=== PATIENT | female | born 2000 | race Caucasian/White ===

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

== ENCOUNTER → 2018-05-10 | Outpatient (REF) | payer OTHER ==
[~2018-05-10] MED LIST: ACET500T15 PO; ARIP2TAB PO; FLUTISP; IBUP-1022 PO; IBUPOTC PO; PARO12.5 PO; PAXI20TA29 PO; TRAZO50TA PO; VENTAER
== END ==
LOC: CANPREREF → M SFHCPLAZ 08:42
PROVIDERS: ATTEND Physician Assistant
DX: Z53.9 Procedure and treatment not carried out, unspecified reason (principal); F32.9 Major depressive disorder, single episode, unspecified

== ENCOUNTER → 2018-05-10 | Outpatient (CLI) | payer OTHER ==
[2018-05-10 13:32] LABS: ALBUMIN 3.9 GM/DL (3.2-5.2); ALT/SGPT 21 U/L (12-78); BILIRUBIN,TOTAL 0.2 MG/DL (0.2-1.0); BLOOD UREA NITROGEN 11 MG/DL (7-18); CARBON DIOXIDE LEVEL 25 MEQ/L (21-32); CHLORIDE LEVEL 104 MEQ/L (98-107); CREATININE FOR GFR 0.63 MG/DL (0.55-1.30); FREE T4 0.99 NG/DL (0.78-1.33); GLUCOSE, FASTING 93 MG/DL (70-100); POTASSIUM SERUM 4.5 MEQ/L (3.5-5.1); SODIUM LEVEL 136 MEQ/L (136-145); TOTAL PROTEIN 7.4 GM/DL (6.4-8.2)
== END ==
LOC: M WUC 08:43
PROVIDERS: ATTEND Physician Assistant
DX: F32.9 Major depressive disorder, single episode, unspecified (principal)

== ENCOUNTER 2018-09-14 18:49 | Emergency (ER) | payer OTHER ==
[~2018-09-14] VITALS: Ht 157.5 cm; Wt 86.4 kg
[~2018-09-14 18:49] MED LIST changes: +ARIP1TAB4 PO; -ARIP2TAB PO; +TRAZ1TAB10 PO; -TRAZO50TA PO
[2018-09-14] MEDS ORDERED: LEVOTAB18 (18:54)
[2018-09-14] MEDS ORDERED: KETOROLAC 30 MG/ML VIAL (J1885) IV ONE (19:45)
[2018-09-14] MEDS ORDERED: GI COCKTAIL 50ML BTL(HYOSCYAMINE/MAALOX/LIDOCAINE VISCOUS)(1:3:1) PO ONE (19:45)
[2018-09-14] MEDS ORDERED: NS 1,000 ML IV ONE (19:45)
[2018-09-14 19:53] LABS: HEMATOCRIT 44.2 % (36.0-47.0); HEMOGLOBIN 14.1 g/dl (12.0-15.5); MEAN CORPUSCULAR HEMOGLOBIN 26.5 pg (27.0-33.0); MEAN CORPUSCULAR HGB CONC 31.9 g/dl (32.0-36.5); MEAN CORPUSCULAR VOLUME 82.9 fl (80.0-96.0); PLATELET COUNT, AUTOMATED 369 10^3/uL (150-450); RED BLOOD COUNT 5.33 10^6/uL (4.00-5.40)
[2018-09-14 20:24] LABS: ATYPICAL LYMPH 1 % (0-5); BASOPHILS 1 % (0-4); EOSINOPHILS 1 % (0-5); LYMPHOCYTES 38 % (16-52); MONOCYTES 4 % (0-8); NEUTROPHILS 55 % (35-75)
[2018-09-14 20:25] LABS: PLATELET ESTIMATE NORMAL (NORMAL)
--- NOTE | 2018-09-14 20:35 | REPVR ---
EXAM: US Abdomen Limited, Right Upper Quadrant EXAM DATE/TIME: 09/14/2018 7:59 PM CLINICAL HISTORY: 17 years old, female; Abdominal pain; Epigastric; Additional info: Ruq pain while eating TECHNIQUE: Imaging protocol: Real-time ultrasound of the abdomen with image documentation. Examination was focused on the right upper quadrant. COMPARISON: No relevant prior studies available. FINDINGS: Liver: Unremarkable. Gallbladder: Partially contracted. No gallstones. No gallbladder wall thickening or pericholecystic fluid. Negative sonographic Frausto's sign, as per the performing director. Common bile duct: No stones. No ductal dilatation. Pancreas: Suboptimally visualized. Right kidney: No mass. No definite stones. No hydronephrosis. IMPRESSION: No acute sonographic findings. Electronically signed by: Jj Lewis On 09/14/2018 20:34:53 PM
[2018-09-14] MEDS ORDERED: ZANT150T40 PO (20:44)
[2018-09-14 21:05] LABS: ALBUMIN 3.8 GM/DL (3.2-5.2); ALT/SGPT 26 U/L (12-78); BILIRUBIN,DIRECT < 0.1 MG/DL (0.0-0.2); BILIRUBIN,TOTAL 0.2 MG/DL (0.2-1.0); BLOOD UREA NITROGEN 12 MG/DL (7-18); CALCIUM LEVEL 8.6 MG/DL (8.5-10.1); CARBON DIOXIDE LEVEL 27 MEQ/L (21-32); CHLORIDE LEVEL 102 MEQ/L (98-107); GLUCOSE, FASTING 96 MG/DL (70-100); LIPASE 87 U/L (73-393); SODIUM LEVEL 136 MEQ/L (136-145); TOTAL PROTEIN 7.8 GM/DL (6.4-8.2)
[2018-09-14 21:10] VITALS: BP 141/72
--- NOTE | 2018-09-15 07:06 | ECGEPIP ---
[facility] - ED Test Date: 2018-09-14 Pat Name: RADHA RIVERA Department: Room: - Gender: Female [employer]: LY : 2000 Requested By: NICOLE Snyder PA-C Order Number: [id number] Reading MD: Lauren Moser Measurements Intervals [place] Rate: 83 P: 17 KS: 137 QRS: 83 QRSD: 85 T: 41 QT: 344 QTc: 406 Interpretive Statements SINUS RHYTHM SIMILAR 07/11/17 Electronically Signed on 09-15-2018 7:06:30 EDT by Lauren Moser
--- NOTE | 2018-09-16 08:37 | REP ---
Clinical: Acute chest pain . Comparison: None . Technique: PA and lateral. Findings: The mediastinum and cardiac silhouette are normal. The lung pearson are clear and without acute consolidation, effusion, or pneumothorax. The skeletal structures are intact and normal. Impression: 1. No acute cardiopulmonary process. Electronically Signed by Vasu Kern MD 09/14/2018 09:16 P
== END 2018-09-14 21:24 | disposition home or self-care (01) ==
LOC: M ED 18:49
DX: K21.9 Gastro-esophageal reflux disease without esophagitis (principal); R10.13 Epigastric pain; J45.909 Unspecified asthma, uncomplicated; Z79.3 Long term (current) use of hormonal contraceptives
CPT/HCPCS: 36415; 71046; 76705; 80048; 80076; 83690; 85025; 85379; 93005; 96374; 99284; J1885

== ENCOUNTER 2018-12-07 11:33 | Emergency (ER) | payer OTHER ==
[~2018-12-07] VITALS: Ht 157.5 cm; Wt 83.5 kg
[~2018-12-07 11:33] MED LIST changes: +LEVOTAB18; +ZANT150T40 PO
[2018-12-07] MEDS ORDERED: APAP325T4 PO (12:50)
[2018-12-07] MEDS ORDERED: IBUP80TA PO (12:50)
[2018-12-07 12:54] VITALS: BP 128/85
== END 2018-12-07 13:01 | disposition home or self-care (01) ==
LOC: M ED 11:33
DX: S20.212A Contusion of left front wall of thorax, initial encounter (principal); V47.6XXA Car passenger injured in collision with fixed or stationary object in traffic accident, initial encounter; Y92.410 Unspecified street and highway as the place of occurrence of the external cause

== ENCOUNTER 2020-02-11 11:52 | Emergency (ER) | payer OTHER ==
[~2020-02-11] VITALS: Ht 157.5 cm; Wt 92.5 kg
[~2020-02-11 11:52] MED LIST changes: +APAP325T4 PO; +IBUP80TA PO; -PARO12.5 PO; +PARO12.510 PO
[2020-02-11] MEDS ORDERED: BOOSTRIX/ADACEL VACCINE (DIPHTH/PERTUSS/ACELL/TETANUS) 0.5ML SYR IM ONE (12:45)
[2020-02-11] MEDS ORDERED: NEOSPORIN TOP OINT 15GM TOP ONE (12:45)
--- NOTE | 2020-02-11 13:29 | REP ---
INDICATION: trauma; stepped on nail COMPARISON: None. TECHNIQUE: Four views left foot obtained. FINDINGS: There is no evidence of acute fracture, dislocation, or intrinsic bone disease.No radiopaque foreign body is seen in the soft tissues. IMPRESSION: No fracture or dislocation. No radiopaque foreign body is seen in the soft tissues. <Electronically signed by Chepe Landry > 02/11/20 [id number]
[2020-02-11 13:33] VITALS: BP 141/77
== END 2020-02-11 13:35 | disposition home or self-care (01) ==
LOC: M ED 11:52
DX: S91.332A Puncture wound without foreign body, left foot, initial encounter (principal); W45.0XXA Nail entering through skin, initial encounter; Y92.098 Other place in other non-institutional residence as the place of occurrence of the external cause; Y93.89 Activity, other specified; Y99.8 Other external cause status; Z72.0 Tobacco use

== ENCOUNTER → 2020-03-22 | Outpatient (CLI) | payer OTHER ==
--- NOTE | 2020-03-22 14:39 | REPPI ---
INDICATION: NECK PAIN. COMPARISON: None. TECHNIQUE: Seven views. FINDINGS: Lateral views done in flexion, extension, and neutral position demonstrate normal alignment. Vertebral body heights are preserved. No subluxation or instability is seen. . Prevertebral soft tissues are unremarkable. Oblique images demonstrate intact neural foramina bilaterally at each cervical level and normally aligned facets. AP and open-mouth odontoid views are unremarkable. IMPRESSION: Unremarkable cervical spine series. <Electronically signed by Delio Patel > 03/22/20 [id number]
--- NOTE | 2020-03-22 14:41 | REPPI ---
INDICATION: BACK PAIN. COMPARISON: None. TECHNIQUE: Three views. FINDINGS: Thoracic vertebral body heights are preserved. Alignment is normal. Disc spaces are maintained. Pedicles and posterior elements are intact. No paravertebral soft tissue swelling or mass is seen. Adjacent structures are unremarkable. Swimmer's lateral view shows no additional finding. IMPRESSION: Negative radiographs of the thoracic spine. <Electronically signed by Delio Patel > 03/22/20 [id number]
== END ==
LOC: M PLAIMG 14:03
PROVIDERS: ATTEND Nurse Practitioner Family
DX: M54.6 Pain in thoracic spine (principal); M54.2 Cervicalgia

== ENCOUNTER 2020-04-27 17:11 | Emergency (ER) | payer OTHER ==
[~2020-04-27] VITALS: Ht 149.9 cm; Wt 99.2 kg
[2020-04-27] MEDS ORDERED: NS 1,000 ML IV ONE (19:30)
[2020-04-27] MEDS ORDERED: ACETAMINOPHEN 325 MG TAB PO ONE (19:30)
[2020-04-27 19:37] LABS: BASO % 0.3 % (0.0-1.0); EOS # 0.1 10^3/uL (0.0-0.5); EOS % 0.5 % (0.0-3.0); HEMATOCRIT 42.9 % (36.0-47.0); HEMOGLOBIN 13.5 g/dl (12.0-15.5); LYMPH # 4.1 10^3/uL (1.5-5.0); LYMPH % 26.2 % (24.0-44.0); MEAN CORPUSCULAR HEMOGLOBIN 25.6 pg (27.0-33.0); MEAN CORPUSCULAR HGB CONC 31.5 g/dl (32.0-36.5); MEAN CORPUSCULAR VOLUME 81.3 fl (80.0-96.0); MONO # 1.4 10^3/uL (0.0-0.8); NEUTROPHILS # 9.8 10^3/uL (1.5-8.5); NEUTROPHILS % 63.4 % (36.0-66.0); PLATELET COUNT, AUTOMATED 355 10^3/uL (150-450); RED BLOOD COUNT 5.28 10^6/uL (4.00-5.40); WHITE BLOOD COUNT 15.5 10^3/uL (4.0-10.0)
[2020-04-27 19:55] LABS: PARTIAL THROMBOPLASTIN TIME 30.9 SECONDS (24.2-38.5); PROTHROMBIN TIME 13.4 SECONDS (12.5-14.3)
[2020-04-27 19:57] LABS: ALT/SGPT 24 U/L (12-78); BILIRUBIN,DIRECT < 0.1 MG/DL (0.0-0.2); FREE T4 0.93 NG/DL (0.76-1.46); LIPASE 98 U/L (73-393); TOTAL PROTEIN 7.9 GM/DL (6.4-8.2)
[2020-04-27 19:58] LABS: D-DIMER QUANT 292.51 ng/ml (<500)
[2020-04-27 20:04] LABS: BILIRUBIN,TOTAL < 0.1 MG/DL (0.2-1.0)
--- NOTE | 2020-04-27 20:18 | ECGEPIP ---
[facility] - ED Test Date: 2020-04-27 Pat Name: RADHA RIVERA Department: Room: - Gender: Female Clinic Scheduler: : 2000 Requested By: Ayan Snyder Order Number: [id number] Reading MD: Lauren Moser Measurements Intervals [place] Rate: 114 P: 58 SD: 141 QRS: 92 QRSD: 79 T: 15 QT: 299 QTc: 413 Interpretive Statements SINUS TACHYCARDIA BORDERLINE RIGHT AXIS DEVIATION ABNORMAL RHYTHM ECG INCREASED RATE 09/14/18 Electronically Signed on 04-27-2020 20:17:39 EST by Lauren Moser
--- NOTE | 2020-04-27 20:24 | REPVR ---
PROCEDURE INFORMATION: Exam: XR Chest, 2 Views Exam date and time: 04/27/2020 8:07 PM Age: 19 years old Clinical indication: Short of breath, chest pain TECHNIQUE: Imaging protocol: XR of the chest Views: 2 views. COMPARISON: CR Chest, 2 view PA, Lat 09/14/2018 8:06 PM FINDINGS: Lungs: Unremarkable. No consolidation. No pulmonary edema. Pleural spaces: Unremarkable. No pleural effusion. No pneumothorax. Heart/Mediastinum: Unremarkable. No cardiomegaly. Bones/joints: Unremarkable. IMPRESSION: No acute findings. Electronically signed by: Prasanth Hernandez On 04/27/2020 20:24:31 PM
[2020-04-27 20:27] LABS: CPK CREATINE PHOSPHOKINASE 115 U/L (26-192); MB/CK RELATIVE INDEX 0.87 (< OR =4); TROPONIN I < 0.02 NG/ML (< 0.10)
[2020-04-27 21:05] VITALS: BP 134/87
== END 2020-04-27 21:28 | disposition home or self-care (01) ==
LOC: M ED 17:11
DX: D72.829 Elevated white blood cell count, unspecified (principal); R07.89 Other chest pain; R00.0 Tachycardia, unspecified; R94.31 Abnormal electrocardiogram [ECG] [EKG]; F41.9 Anxiety disorder, unspecified; F32.9 Major depressive disorder, single episode, unspecified; F20.9 Schizophrenia, unspecified; J45.909 Unspecified asthma, uncomplicated; R51.9 Headache, unspecified

== ENCOUNTER 2020-08-12 20:48 | Emergency (ER) | payer OTHER ==
[~2020-08-12] VITALS: Ht 154.9 cm; Wt 95.7 kg
[2020-08-12 20:49] VITALS: BP 131/83
== END 2020-08-12 22:22 | disposition left against medical advice (07) ==
LOC: M ED 20:48
DX: Z53.21 Procedure and treatment not carried out due to patient leaving prior to being seen by health care provider (principal)

== ENCOUNTER → 2021-05-24 | Outpatient (CLI) | payer OTHER ==
[~2021-05-24] MED LIST changes: +METH2.5T48 PO; -PARO12.510 PO; +PARO12.56 PO
== END ==
LOC: M WHC 10:40
PROVIDERS: ATTEND Advanced Practice Midwife
DX: Z34.82 Encounter for supervision of other normal pregnancy, second trimester (principal)

== ENCOUNTER → 2021-07-01 | Outpatient (CLI) | payer OTHER ==
[2021-07-01 13:48] LABS: BASO % 0.2 % (0.0-1.0); EOS # 0.1 10^3/uL (0.0-0.5); EOS % 0.8 % (0.0-3.0); HEMATOCRIT 37.4 % (36.0-47.0); HEMOGLOBIN 12.4 g/dl (12.0-15.5); LYMPH # 2.7 10^3/uL (1.5-5.0); LYMPH % 19.2 % (24.0-44.0); MEAN CORPUSCULAR HEMOGLOBIN 27.4 pg (27.0-33.0); MEAN CORPUSCULAR HGB CONC 33.2 g/dl (32.0-36.5); MEAN CORPUSCULAR VOLUME 82.7 fl (80.0-96.0); MONO % 7.3 % (2.0-8.0); NEUTROPHILS # 9.9 10^3/uL (1.5-8.5); NEUTROPHILS % 71.3 % (36.0-66.0); PLATELET COUNT, AUTOMATED 256 10^3/uL (150-450); RED BLOOD COUNT 4.52 10^6/uL (4.00-5.40); WHITE BLOOD COUNT 13.9 10^3/uL (4.0-10.0)
[2021-07-01 15:07] LABS: HEPATITIS C VIRUS ABY INDEX 0.1 INDEX (<0.8); HIV 1&2 SCREEN CENTAUR NEGATIVE (NEGATIVE)
[2021-07-01 15:08] LABS: GC DNA AMPLIFICATION NEGATIVE (NEGATIVE)
== END ==
LOC: M PLALAB 08:41
PROVIDERS: ATTEND Advanced Practice Midwife
DX: Z34.82 Encounter for supervision of other normal pregnancy, second trimester (principal); Z3A.00 Weeks of gestation of pregnancy not specified

== ENCOUNTER → 2021-07-07 | Outpatient (CLI) | payer OTHER | LOC: M WHC 13:26 | PROVIDERS: ATTEND Advanced Practice Midwife | DX: Z34.82 Encounter for supervision of other normal pregnancy, second trimester (principal) ==

== ENCOUNTER → 2021-07-28 | Outpatient (REF) | payer OTHER | LOC: M PLALAB 09:02 | PROVIDERS: ATTEND Advanced Practice Midwife | DX: Z34.82 Encounter for supervision of other normal pregnancy, second trimester (principal) ==

== ENCOUNTER → 2021-08-04 | Outpatient (CLI) | payer OTHER ==
[2021-08-04 13:30] LABS: HEMATOCRIT 34.6 % (36.0-47.0); HEMOGLOBIN 11.3 g/dl (12.0-15.5); MEAN CORPUSCULAR HEMOGLOBIN 27.6 pg (27.0-33.0); MEAN CORPUSCULAR HGB CONC 32.7 g/dl (32.0-36.5); MEAN CORPUSCULAR VOLUME 84.4 fl (80.0-96.0); PLATELET COUNT, AUTOMATED 284 10^3/uL (150-450); WHITE BLOOD COUNT 12.2 10^3/uL (4.0-10.0)
== END ==
LOC: M PLALAB 09:55
PROVIDERS: ATTEND Advanced Practice Midwife
DX: Z34.82 Encounter for supervision of other normal pregnancy, second trimester (principal)

== ENCOUNTER → 2021-08-22 | Outpatient (CLI) | payer OTHER | LOC: M WHC 13:30 | PROVIDERS: ATTEND Advanced Practice Midwife | DX: Z34.82 Encounter for supervision of other normal pregnancy, second trimester (principal) ==

== ENCOUNTER 2021-09-03 01:23 | Outpatient (CLI) | payer OTHER ==
[~2021-09-03] VITALS: Ht 157.5 cm; Wt 99.9 kg
[2021-09-03 01:41] VITALS: BP 117/61
[2021-09-03 03:01] VITALS: BP 119/61
[2021-09-03 03:06] LABS: APPEARANCE, URINE TURBID (CLEAR); BACTERIA, URINE AUTO 1+ (NEGATIVE); BILIRUBIN, URINE AUTO NEGATIVE (NEGATIVE); BLOOD, URINE BLOOD 1+ (NEGATIVE); CALCIUM OXALATE CRYSTALS MODERATE; COLOR, URINE AMBER (YELLOW); GLUCOSE, URINE (UA) AUTO NEGATIVE (NEGATIVE); KETONE, URINE AUTO NEGATIVE (NEGATIVE); LEUKOCYTE ESTERASE, URINE AUTO 3+ (NEGATIVE); MUCUS, URINE SMALL (NEGATIVE); NITRITE, URINE AUTO NEGATIVE (NEGATIVE); PROTEIN, URINE AUTO 1+ mg/dL (NEGATIVE); RBC, URINE AUTO 71 /HPF (0-3); SQUAMOUS EPITHELIAL CELL UR AU 37 /HPF (0-6); UROBILINOGEN, URINE AUTO 0.2 mg/dL (0.0-2.0); WBC, URINE AUTO 66 /HPF (0-3)
[2021-09-03 03:07] LABS: BASO % 0.2 % (0.0-1.0); EOS % 0.1 % (0.0-3.0); HEMATOCRIT 33.2 % (36.0-47.0); HEMOGLOBIN 10.8 g/dl (12.0-15.5); LYMPH # 2.9 10^3/uL (1.5-5.0); LYMPH % 21.5 % (24.0-44.0); MEAN CORPUSCULAR HGB CONC 32.5 g/dl (32.0-36.5); MONO # 1.2 10^3/uL (0.0-0.8); MONO % 8.9 % (2.0-8.0); NEUTROPHILS # 9.3 10^3/uL (1.5-8.5); NEUTROPHILS % 67.9 % (36.0-66.0); PLATELET COUNT, AUTOMATED 264 10^3/uL (150-450); WHITE BLOOD COUNT 13.6 10^3/uL (4.0-10.0)
[2021-09-03 06:37] VITALS: BP 134/63
== END 2021-09-03 06:54 | disposition home or self-care (01) ==
LOC: M LDO 01:23
PROVIDERS: ATTEND Specialist
DX: O26.893 Other specified pregnancy related conditions, third trimester (principal); R10.30 Lower abdominal pain, unspecified; Z3A.30 30 weeks gestation of pregnancy

== ENCOUNTER 2021-10-02 11:58 | Outpatient (CLI) | payer OTHER ==
[~2021-10-02] VITALS: Ht 157.5 cm; Wt 102.2 kg
[2021-10-02 12:11] VITALS: BP 117/66
[2021-10-02] MEDS ORDERED: PRENTAB9 PO (12:16)
[2021-10-02] MEDS ORDERED: HOME MED LIST COMPLETE! XX SCH (12:20)
[2021-10-02 12:48] LABS: APPEARANCE, URINE CLOUDY (CLEAR); BACTERIA, URINE AUTO 1+ (NEGATIVE); BILIRUBIN, URINE AUTO NEGATIVE (NEGATIVE); BLOOD, URINE BLOOD NEGATIVE (NEGATIVE); COLOR, URINE YELLOW (YELLOW); GLUCOSE, URINE (UA) AUTO NEGATIVE (NEGATIVE); KETONE, URINE AUTO TRACE mg/dL (NEGATIVE); LEUKOCYTE ESTERASE, URINE AUTO 3+ (NEGATIVE); MUCUS, URINE SMALL (NEGATIVE); NITRITE, URINE AUTO NEGATIVE (NEGATIVE); PROTEIN, URINE AUTO 1+ mg/dL (NEGATIVE); RBC, URINE AUTO 3 /HPF (0-3); SPECIFIC GRAVITY URINE AUTO 1.021 (1.002-1.035); SQUAMOUS EPITHELIAL CELL UR AU 10 /HPF (0-6); TRANSITIONAL EPITHELIAL AUTO <1 /HPF; UROBILINOGEN, URINE AUTO 0.2 mg/dL (0.0-2.0); WBC, URINE AUTO 23 /HPF (0-3)
[2021-10-02 14:04] VITALS: BP 138/74
== END 2021-10-02 14:13 | disposition home or self-care (01) ==
LOC: M LDO 11:58
PROVIDERS: ATTEND Obstetrics & Gynecology
DX: O36.8230 Fetal anemia and thrombocytopenia, third trimester, not applicable or unspecified (principal); O26.893 Other specified pregnancy related conditions, third trimester; R25.2 Cramp and spasm; Z3A.34 34 weeks gestation of pregnancy

== ENCOUNTER 2021-10-06 07:59 | Outpatient (CLI) | payer OTHER ==
[~2021-10-06] VITALS: Ht 152.4 cm; Wt 102.0 kg
[~2021-10-06 07:59] MED LIST changes: +PRENTAB9 PO
[2021-10-06 08:24] VITALS: BP 103/58
[2021-10-06] MEDS ORDERED: FAMO10TA50 PO (08:30)
[2021-10-06] MEDS ORDERED: HOME MED LIST COMPLETE! XX SCH (08:35)
== END 2021-10-06 10:02 | disposition home or self-care (01) ==
LOC: M LDO 07:59
PROVIDERS: ATTEND Obstetrics & Gynecology
DX: O26.893 Other specified pregnancy related conditions, third trimester (principal); R25.2 Cramp and spasm; N89.8 Other specified noninflammatory disorders of vagina; Z3A.35 35 weeks gestation of pregnancy

== ENCOUNTER → 2021-10-12 | Outpatient (REF) | payer OTHER ==
[~2021-10-12] MED LIST changes: +FAMO10TA50 PO
== END ==
LOC: M SFHCWAGY 16:45
PROVIDERS: ATTEND Obstetrics & Gynecology
DX: O09.293 Supervision of pregnancy with other poor reproductive or obstetric history, third trimester (principal)

== ENCOUNTER → 2021-10-19 | Outpatient (CLI) | payer OTHER ==
[2021-10-19 15:23] LABS: HEMATOCRIT 35.7 % (36.0-47.0); HEMOGLOBIN 11.4 g/dl (12.0-15.5); MEAN CORPUSCULAR HEMOGLOBIN 26.1 pg (27.0-33.0); MEAN CORPUSCULAR HGB CONC 31.9 g/dl (32.0-36.5); MEAN CORPUSCULAR VOLUME 81.7 fl (80.0-96.0); PLATELET COUNT, AUTOMATED 260 10^3/uL (150-450); RED BLOOD COUNT 4.37 10^6/uL (4.00-5.40); WHITE BLOOD COUNT 13.5 10^3/uL (4.0-10.0)
[2021-10-19 15:55] LABS: ALBUMIN 2.3 GM/DL (3.2-5.2); ALT/SGPT 19 U/L (12-78); BILIRUBIN,TOTAL 0.1 MG/DL (0.2-1.0); BLOOD UREA NITROGEN 6 MG/DL (7-18); CALCIUM LEVEL 8.6 MG/DL (8.5-10.1); CARBON DIOXIDE LEVEL 24 MEQ/L (21-32); CHLORIDE LEVEL 105 MEQ/L (98-107); CREATININE FOR GFR 0.52 MG/DL (0.55-1.30); GLOMERULAR FILTRATION RATE > 60.0 (>60); GLUCOSE, FASTING 89 MG/DL (70-100); POTASSIUM SERUM 3.7 MEQ/L (3.5-5.1); SODIUM LEVEL 136 MEQ/L (136-145); TOTAL PROTEIN 6.6 GM/DL (6.4-8.2)
== END ==
LOC: M PLALAB 14:08
PROVIDERS: ATTEND Obstetrics & Gynecology
DX: O16.3 Unspecified maternal hypertension, third trimester (principal)

== ENCOUNTER → 2021-10-26 | Outpatient (REF) | payer OTHER | LOC: M SFHCCLAY 17:07 | PROVIDERS: ATTEND Nurse Practitioner Family | DX: O16.3 Unspecified maternal hypertension, third trimester (principal) ==

== ENCOUNTER 2021-10-27 00:37 | Inpatient (IN) | payer OTHER ==
[2021-10-27] VITALS (35 sets, daily range): BP systolic 114–166; BP diastolic 58–93
[~2021-10-27] VITALS: Ht 157.5 cm; Wt 104.1 kg
[2021-10-27 02:08] LABS: HEMATOCRIT 36.2 % (36.0-47.0); HEMOGLOBIN 11.9 g/dl (12.0-15.5); MEAN CORPUSCULAR HEMOGLOBIN 26.4 pg (27.0-33.0); MEAN CORPUSCULAR HGB CONC 32.9 g/dl (32.0-36.5); MEAN CORPUSCULAR VOLUME 80.3 fl (80.0-96.0); PLATELET COUNT, AUTOMATED 281 10^3/uL (150-450); RED BLOOD COUNT 4.51 10^6/uL (4.00-5.40); WHITE BLOOD COUNT 18.3 10^3/uL (4.0-10.0)
[2021-10-27] MEDS ORDERED: FENTANYL 2MCG/ML ROPIVACAINE 0.2% IN 0.9% NACL 100ML IVBAG As Ordered ONE (05:09)
[2021-10-27] MEDS ORDERED: EPIDURAL/PCA KEYS XX PRN (05:15)
[2021-10-27] MEDS ORDERED: NALOXONE INJ 0.4MG/1ML VIAL (J2310 PER 1MG) IV PRN ×3 (05:15→11:55)
[2021-10-27] MEDS ORDERED: LR 500 ML IV PRN (05:15)
[2021-10-27] MEDS ORDERED: FENTANYL/ROPIVACAINE/NACL BAG 100 ML EPIDURAL SCH (05:15)
[2021-10-27] MEDS ORDERED: diphenhydrAMINE 50MG/ML VIAL (J1200) IV PRN ×2 (05:15→11:55)
[2021-10-27] MEDS ORDERED: ONDANSETRON 4MG 2ML VIAL IV PRN ×3 (05:15→11:55)
[2021-10-27] MEDS ORDERED: ePHEDrine SULFATE 25 MG/5 ML(5MG/ML) SYRINGE IVP PRN (05:15)
[2021-10-27] MEDS ORDERED: LACTATED RINGER'S 1000 ML IV STA (05:29)
[2021-10-27] MEDS ORDERED: LIDOCAINE 1% MDV 20ML VIAL INFIL PRN (05:30)
[2021-10-27] MEDS ORDERED: OXYTOCIN INJ 10 UNITS/ML VIAL (J2590) IM PRN (05:30)
[2021-10-27] MEDS ORDERED: TRANEXAMIC ACID INJection 1,000 MG in NS 100 ML IV PRN (05:30)
[2021-10-27] MEDS ORDERED: OXYTOCIN DRIP 30 UNITS in IV 1 EA IV PRN ×4 (05:30)
[2021-10-27] MEDS ORDERED: CARBOPROST TROMETHAMINE 250 MCG/ML AMP IM PRN (05:30)
[2021-10-27] MEDS: LR 1,000 ML IV SCH ×2 (06:51→08:17)
[2021-10-27] MEDS ORDERED: CALCIUM CARBONATE 500 MG CHEW U/D PO PRN (06:55)
[2021-10-27 07:04] LABS: TOTAL PROTEIN,RANDOM URINE 18.9 MG/DL (0.0-12.0)
[2021-10-27 07:07] LABS: ALT/SGPT 15 U/L (12-78); BILIRUBIN,TOTAL < 0.1 MG/DL (0.2-1.0); CREATININE FOR GFR 0.65 MG/DL (0.55-1.30); GLOMERULAR FILTRATION RATE > 60.0 (>60); LDH LACTATE DEHYDROGENASE 220 U/L (84-246); URIC ACID 5.2 MG/DL (2.6-6.0)
[2021-10-27] MEDS ORDERED: BICITRA 30ML SOLN UDC PO ONE (09:25)
[2021-10-27] MEDS ORDERED: ceFAZolin SOD 3 GM IV Place Holder IV ONE (09:25)
[2021-10-27] MEDS ORDERED: AZITHROMYCIN INJ 500 MG, VIAL MATE ADAPTER 1 EACH in NS 250 ML IV ONE (09:25)
[2021-10-27] MEDS ORDERED: LIDOCAINE 2% W/EPINEPHRINE 20ML VIAL **PRES FREE As Ordered ONE (09:25)
[2021-10-27] MEDS ORDERED: ceFAZolin 2 GM/D5W 50 ML IV BAG (J0690 PER 500MG) As Ordered ONE (09:25)
[2021-10-27] MEDS ORDERED: MORPHINE PRES-FREE INJ 10 MG/10 ML VIAL As Ordered ONE (09:25)
[2021-10-27] MEDS ORDERED: AZITHROMYCIN INJ 500MG VIAL As Ordered ONE (09:26)
[2021-10-27] MEDS ORDERED: ceFAZolin 1GM VIAL (J0690 PER 500MG) As Ordered ONE (09:27)
[2021-10-27] MEDS ORDERED: BICITRA 30ML SOLN UDC As Ordered ONE (09:27)
[2021-10-27] MEDS ORDERED: OXYTOCIN INJ 10 UNITS/ML VIAL (J2590) As Ordered ONE ×2 (09:28→10:06)
[2021-10-27] MEDS ORDERED: KETOROLAC 60MG 2ML VIAL As Ordered ONE (09:28)
[2021-10-27] MEDS ORDERED: ceFAZolin SOD 1 GM in D5W MINI-BAG PLUS 50 ML IV ONE (09:35)
[2021-10-27] MEDS ORDERED: ceFAZolin SOD 2 GM in IV 1 EA IV ONE (09:35)
[2021-10-27 09:56] LABS: CORD GAS ABE A -1.9; CORD GAS HCO3 A 24.6 MEQ/L; CORD GAS O2 SAT A 80.8 %; CORD GAS PCO2 A 47.6 mmHg; CORD GAS PH A 7.331 UNITS; CORD GAS SBC A 22.4 MEQ/L; CORD GAS TCO2 A 26.1 MEQ/L
[2021-10-27 10:03] LABS: CORD GAS ABE V -3.4; CORD GAS HCO3 V 22.5 MEQ/L; CORD GAS O2 SAT V 88.4 %; CORD GAS PCO2 V 43.4 mmHg; CORD GAS PH V 7.332 UNITS; CORD GAS PO2 V 42.2 mmHg; CORD GAS SBC V 21.4 MEQ/L; CORD GAS TCO2 V 23.8 MEQ/L
[2021-10-27] MEDS ORDERED: RHOGAM 300 MCG (1500 IU) INJ (J2790) IM SCH (10:45)
[2021-10-27] MEDS ORDERED: OXYTOCIN DRIP 30 UNITS in IV 1 EA IV SCH (10:45)
[2021-10-27] MEDS ORDERED: OXYTOCIN 30 UNITS IN 0.9% NaCl 500ML IV BAG (J2590) As Ordered ONE (10:54)
[2021-10-27] MEDS ORDERED: METOCLOPRAMIDE INJ 10MG/2ML VIAL (J2765 PER 1) IV PRN (11:55)
[2021-10-27] MEDS ORDERED: **NOTE PATIENT COMMENT** MISC XX SCH (11:55)
[2021-10-27] MEDS ORDERED: fentaNYL 100 MCG/2 ML INJECTION IV PRN (11:55)
[2021-10-27] MEDS: SLF 3 ML SYR IV SCH ×2 (11:55→19:55)
[2021-10-27] MEDS ORDERED: oxyCODONE 5MG TAB PO PRN (11:55)
[2021-10-27] MEDS: PERCOCET 5MG/325MG TAB PO PRN ×2 (12:59→21:34)
[2021-10-27] MEDS: KETOROLAC 30 MG/ML 1ML VIAL IV SCH ×2 (16:00→21:32)
[2021-10-27] MEDS ORDERED: LR 1,000 ML IV ONE (16:35)
[2021-10-27] MEDS: SIMETHICONE 80MG CHEW TAB PO PRN ×2 (18:24→21:32)
[2021-10-27] MEDS: ENOXAPARIN 30MG/0.3ML SYRINGE (J1650 PER 10MG) SC SCH (21:30)
[2021-10-28 02:00] VITALS: BP 110/68
[2021-10-28] MEDS: PERCOCET 5MG/325MG TAB PO PRN ×4 (02:47→18:34)
[2021-10-28] MEDS: SLF 3 ML SYR IV SCH (03:55)
[2021-10-28] MEDS: KETOROLAC 30 MG/ML 1ML VIAL IV SCH (04:28)
[2021-10-28] MEDS: SIMETHICONE 80MG CHEW TAB PO PRN ×2 (04:31→21:40)
[2021-10-28 06:00] VITALS: BP 122/67
[2021-10-28 08:19] LABS: HEMATOCRIT 28.3 % (36.0-47.0); MEAN CORPUSCULAR HEMOGLOBIN 27.1 pg (27.0-33.0); MEAN CORPUSCULAR HGB CONC 32.5 g/dl (32.0-36.5); MEAN CORPUSCULAR VOLUME 83.2 fl (80.0-96.0); PLATELET COUNT, AUTOMATED 216 10^3/uL (150-450); WHITE BLOOD COUNT 18.6 10^3/uL (4.0-10.0)
[2021-10-28 08:26] LABS: HEMOGLOBIN 9.2 g/dl (12.0-15.5)
[2021-10-28] MEDS ORDERED: PERCOCET PO (08:57)
[2021-10-28] MEDS ORDERED: IBUP80TA PO (08:57)
[2021-10-28] MEDS ORDERED: ENOXAPARIN 40MG/0.4ML SYRINGE (J1650 PER 10MG) SC SCH (09:00)
[2021-10-28] MEDS: PRENATAL VITAMINS CHEWABLE TABLET PO SCH (09:06)
[2021-10-28] MEDS: ENOXAPARIN 30MG/0.3ML SYRINGE (J1650 PER 10MG) SC SCH ×2 (09:06→21:40)
[2021-10-28] MEDS: IBUPROFEN 800 MG TAB PO SCH ×2 (12:17→19:49)
[2021-10-28 18:10] VITALS: BP 104/59
[2021-10-28 22:01] VITALS: BP 128/63
[2021-10-29 02:13] VITALS: BP 131/75
[2021-10-29] MEDS: IBUPROFEN 800 MG TAB PO SCH ×2 (04:09→11:48)
[2021-10-29] MEDS: PERCOCET 5MG/325MG TAB PO PRN (04:58)
[2021-10-29 06:05] VITALS: BP 117/61
[2021-10-29] MEDS ORDERED: MEASLES,MUMPS,RUBELLA VACCINE INJ (MMR-II) (90707) SC.IMMUN ONE (09:00)
[2021-10-29] MEDS: PRENATAL VITAMINS CHEWABLE TABLET PO SCH (09:44)
[2021-10-29] MEDS: ENOXAPARIN 30MG/0.3ML SYRINGE (J1650 PER 10MG) SC SCH (09:45)
[2021-10-29 10:00] VITALS: BP 128/87
== END 2021-10-29 12:00 | disposition home or self-care (01) | DRG 540 ==
LOC: M LDO 00:37 → M LDI 01:33 → M OBS 12:02
PROVIDERS: ADMIT Advanced Practice Midwife; ATTEND Obstetrics & Gynecology
PROC: 10D00Z1 Extraction of Products of Conception, Low, Open Approach (ICD-10-PCS; principal; 2021-10-27 09:30)
DX: O62.0 Primary inadequate contractions (principal); O99.354 Diseases of the nervous system complicating childbirth; O99.214 Obesity complicating childbirth; E66.9 Obesity, unspecified; F32.A Depression, unspecified; F41.9 Anxiety disorder, unspecified; G47.00 Insomnia, unspecified; O76 Abnormality in fetal heart rate and rhythm complicating labor and delivery; O99.344 Other mental disorders complicating childbirth; Z37.0 Single live birth; Z3A.38 38 weeks gestation of pregnancy

== ENCOUNTER 2022-06-11 09:47 | Emergency (ER) | payer OTHER ==
[~2022-06-11] VITALS: Ht 157.5 cm; Wt 109.2 kg
[~2022-06-11 09:47] MED LIST changes: -PAXI20TA29 PO; +PAXI20TA30 PO; +PERCOCET PO
[2022-06-11] MEDS ORDERED: LIDOCAINE 4% CREAM 5GM (LMX4) TOP ONE (10:40)
[2022-06-11] MEDS ORDERED: IBUPROFEN 600MG TAB PO ONE (10:40)
[2022-06-11] MEDS ORDERED: ANEC4CRE3 TOP (11:58)
[2022-06-11] MEDS ORDERED: IBUP-1022 PO (11:58)
[2022-06-11 12:34] VITALS: BP 139/71
== END 2022-06-11 12:41 | disposition home or self-care (01) ==
LOC: M ED 09:47
DX: S99.912A Unspecified injury of left ankle, initial encounter (principal); X50.0XXA Overexertion from strenuous movement or load, initial encounter; Y92.009 Unspecified place in unspecified non-institutional (private) residence as the place of occurrence of the external cause; J45.909 Unspecified asthma, uncomplicated; Z79.899 Other long term (current) drug therapy

== ENCOUNTER 2022-08-30 07:32 | Emergency (ER) | payer OTHER ==
[~2022-08-30] VITALS: Ht 157.5 cm; Wt 109.7 kg
[2022-08-30 09:23] LABS: HEMATOCRIT 39.9 % (36.0-47.0); HEMOGLOBIN 12.4 g/dl (12.0-15.5); MEAN CORPUSCULAR HEMOGLOBIN 25.1 pg (27.0-33.0); MEAN CORPUSCULAR HGB CONC 31.1 g/dl (32.0-36.5); MEAN CORPUSCULAR VOLUME 80.6 fl (80.0-96.0); PLATELET COUNT, AUTOMATED 296 10^3/uL (150-450); RED BLOOD COUNT 4.95 10^6/uL (4.00-5.40); WHITE BLOOD COUNT 6.9 10^3/uL (4.0-10.0)
[2022-08-30 10:14] LABS: HCG, SERUM QUALITATIVE NEGATIVE (NEGATIVE)
[2022-08-30 10:39] VITALS: BP 128/74; TEMP 97.8; O2SAT 98
== END 2022-08-30 10:42 | disposition home or self-care (01) ==
LOC: M ED 07:32
DX: N93.8 Other specified abnormal uterine and vaginal bleeding (principal); Z79.899 Other long term (current) drug therapy

== ENCOUNTER → 2022-08-30 | Outpatient (CLI) | payer OTHER ==
[~2022-08-30] MED LIST changes: +ANEC4CRE3 TOP; +FLUT50SP17; -FLUTISP
[2022-08-30 15:50] LABS: BASO % 0.4 % (0.0-1.0); EOS # 0.1 10^3/uL (0.0-0.5); EOS % 0.6 % (0.0-3.0); HEMATOCRIT 40.7 % (36.0-47.0); HEMOGLOBIN 12.7 g/dl (12.0-15.5); LYMPH # 3.9 10^3/uL (1.5-5.0); MEAN CORPUSCULAR HEMOGLOBIN 24.6 pg (27.0-33.0); MEAN CORPUSCULAR HGB CONC 31.2 g/dl (32.0-36.5); MEAN CORPUSCULAR VOLUME 78.9 fl (80.0-96.0); MONO # 0.9 10^3/uL (0.0-0.8); MONO % 9.1 % (2.0-8.0); NEUTROPHILS # 4.9 10^3/uL (1.5-8.5); NEUTROPHILS % 49.7 % (36.0-66.0); PLATELET COUNT, AUTOMATED 357 10^3/uL (150-450); RED BLOOD COUNT 5.16 10^6/uL (4.00-5.40); WHITE BLOOD COUNT 9.8 10^3/uL (4.0-10.0)
[2022-08-30 15:59] LABS: HEMOGLOBIN A1c 5.5 % (4.0-6.0)
[2022-08-30 16:20] LABS: ALBUMIN 3.7 G/DL (3.2-5.2); ALKALINE PHOSPHATASE 77 U/L (46-116); ALT/SGPT 19 U/L (7.0-40); AST/SGOT 15 U/L (<34); BILIRUBIN,TOTAL 0.2 MG/DL (0.3-1.2); BLOOD UREA NITROGEN 7 MG/DL (9-23); CALCIUM LEVEL 8.8 MG/DL (8.5-10.1); CARBON DIOXIDE LEVEL 25 MMOL/L (20-31); CHLORIDE LEVEL 104 MMOL/L (98-107); CHOLESTEROL LEVEL 224 MG/DL (<200); CHOLESTEROL RISK RATIO 4.63 (<5); CREATININE FOR GFR 0.58 MG/DL (0.55-1.30); GLOMERULAR FILTRATION RATE > 60.0 (>60); GLUCOSE, FASTING 98 MG/DL (60-100); HDL CHOLESTEROL 48.3 MG/DL (>40); LDL CHOLESTEROL 140.9 MG/DL (<100); NON-HDL-C 175.7 MG/DL; POTASSIUM SERUM 4.3 MMOL/L (3.5-5.1); SODIUM LEVEL 136 MMOL/L (136-145); TOTAL PROTEIN 6.9 G/DL (5.7-8.2); TRIGLYCERIDES LEVEL 174 MG/DL (<150)
[2022-08-30 16:22] LABS: FREE T4 1.23 NG/DL (0.89-1.76)
[2022-08-30 16:23] LABS: THYROID STIMULATING HORMONE 1.808 uIU/ML (0.55-4.78)
== END ==
LOC: M PLALAB 13:53
PROVIDERS: ATTEND Nurse Practitioner Family
DX: F41.9 Anxiety disorder, unspecified (principal)

== ENCOUNTER 2023-12-31 08:56 | Emergency (ER) | payer OTHER ==
[~2023-12-31] VITALS: Ht 157.5 cm; Wt 105.7 kg
[~2023-12-31 08:56] MED LIST changes: +DULO1CAP6; -FLUT50SP17; +FLUTISP; +HYDR-643 PO; +PRAZ2CAP
[2023-12-31] MEDS ORDERED: AMOX500C (09:23)
[2023-12-31] MEDS ORDERED: ESZO1TAB4 (09:23)
[2023-12-31 09:25] VITALS: BP 125/79; TEMP 99.1; O2SAT 96
== END 2023-12-31 11:42 | disposition left against medical advice (07) ==
LOC: EDSEX 08:56 → EDBD 08:56 → M ED 08:56
DX: Z53.21 Procedure and treatment not carried out due to patient leaving prior to being seen by health care provider (principal)

== ENCOUNTER → 2024-03-31 | Outpatient (CLI) | payer OTHER ==
[~2024-03-31] MED LIST changes: +AMOX500C; +ESZO1TAB4
== END ==
LOC: M PLAIMG 09:14
PROVIDERS: ATTEND Physician Assistant Medical
DX: R22.31 Localized swelling, mass and lump, right upper limb (principal)

== ENCOUNTER 2024-04-05 19:10 | Emergency (ER) | payer OTHER ==
[~2024-04-05] VITALS: Ht 157.5 cm; Wt 108.9 kg
[2024-04-05 19:19] VITALS: BP 154/78; TEMP 98.2; O2SAT 97
[2024-04-05] MEDS ORDERED: hydroxycut PO (19:21)
== END 2024-04-05 20:37 | disposition left against medical advice (07) ==
LOC: M ED 19:10
DX: Z53.21 Procedure and treatment not carried out due to patient leaving prior to being seen by health care provider (principal)

== ENCOUNTER → 2024-04-25 | Outpatient (CLI) | payer OTHER ==
[~2024-04-25] MED LIST changes: +hydroxycut PO
[2024-04-25 18:23] LABS: BASO % 0.3 % (0.0-1.0); EOS # 0.1 10^3/uL (0.0-0.5); EOS % 0.7 % (0.0-3.0); HEMATOCRIT 36.7 % (36.0-47.0); HEMOGLOBIN 10.6 g/dl (12.0-15.5); LYMPH # 4.5 10^3/uL (1.5-5.0); LYMPH % 30.6 % (24.0-44.0); MEAN CORPUSCULAR HEMOGLOBIN 19.8 pg (27.0-33.0); MEAN CORPUSCULAR HGB CONC 28.9 g/dl (32.0-36.5); MEAN CORPUSCULAR VOLUME 68.6 fl (80.0-96.0); MONO % 6.7 % (2.0-8.0); NEUTROPHILS % 61.2 % (36.0-66.0); PLATELET COUNT, AUTOMATED 484 10^3/uL (150-450); RED BLOOD COUNT 5.35 10^6/uL (4.00-5.40); WHITE BLOOD COUNT 14.7 10^3/uL (4.0-10.0)
[2024-04-25 18:47] LABS: ALBUMIN 3.8 G/DL (3.2-5.2); ALKALINE PHOSPHATASE 82 U/L (35-104); ALT/SGPT 16 U/L (7.0-40); AST/SGOT 13 U/L (<34); BILIRUBIN,TOTAL 0.3 MG/DL (0.3-1.2); BLOOD UREA NITROGEN 8 MG/DL (9-23); CALCIUM LEVEL 9.6 MG/DL (8.5-10.1); CARBON DIOXIDE LEVEL 26 MMOL/L (20-31); CHLORIDE LEVEL 106 MMOL/L (98-107); CHOLESTEROL LEVEL 207 MG/DL (<200); CHOLESTEROL RISK RATIO 5.57 (<5); CREATININE FOR GFR 0.63 MG/DL (0.55-1.30); GLOMERULAR FILTRATION RATE > 60.0 (>60); GLUCOSE, FASTING 103 MG/DL (60-100); HDL CHOLESTEROL 37.1 MG/DL (>40); LDL CHOLESTEROL 125.5 MG/DL (<100); NON-HDL-C 169.9 MG/DL; POTASSIUM SERUM 4.3 MMOL/L (3.5-5.1); SODIUM LEVEL 138 MMOL/L (136-145); TOTAL PROTEIN 7.5 G/DL (5.7-8.2); TRIGLYCERIDES LEVEL 222 MG/DL (<150)
[2024-04-25 18:49] LABS: THYROID STIMULATING HORMONE 2.173 uIU/ML (0.55-4.78)
[2024-04-25 19:24] LABS: HEMOGLOBIN A1c 5.9 % (4.0-6.0)
== END ==
LOC: M PLALAB 14:54
PROVIDERS: ATTEND Nurse Practitioner Family
DX: E55.9 Vitamin D deficiency, unspecified (principal); E78.2 Mixed hyperlipidemia; R53.83 Other fatigue; R73.01 Impaired fasting glucose

== ENCOUNTER 2024-06-09 00:57 | Emergency (ER) | payer OTHER ==
[~2024-06-09] VITALS: Ht 157.5 cm; Wt 104.5 kg
[~2024-06-09 00:57] MED LIST changes: -DULO1CAP6; +DULO1CAP6 PO
[2024-06-09 01:51] LABS: HEMATOCRIT 36.8 % (36.0-47.0); HEMOGLOBIN 10.8 g/dl (12.0-15.5); MEAN CORPUSCULAR HEMOGLOBIN 20.2 pg (27.0-33.0); MEAN CORPUSCULAR HGB CONC 29.3 g/dl (32.0-36.5); MEAN CORPUSCULAR VOLUME 68.9 fl (80.0-96.0); PLATELET COUNT, AUTOMATED 465 10^3/uL (150-450); RED BLOOD COUNT 5.34 10^6/uL (4.00-5.40); WHITE BLOOD COUNT 13.3 10^3/uL (4.0-10.0)
[2024-06-09 02:10] LABS: AMPHETAMINES LEVEL URINE NEGATIVE (NEGATIVE); BARBITURATES URINE NEGATIVE (NEGATIVE); BENZODIAZEPINES URINE NEGATIVE (NEGATIVE); CANNABINOIDS URINE NEGATIVE (NEGATIVE); COCAINE METABOLITE URINE NEGATIVE (NEGATIVE); METHADONE URINE NEGATIVE (NEGATIVE); OPIATES URINE NEGATIVE (NEGATIVE); PHENCYCLIDINE URINE NEGATIVE (NEGATIVE)
[2024-06-09 02:12] LABS: ETHYL ALCOHOL (ETHANOL) < 0.003 % (0.000-0.010)
[2024-06-09 02:14] LABS: ALBUMIN 3.7 G/DL (3.2-5.2); ALKALINE PHOSPHATASE 77 U/L (35-104); ALT/SGPT 19 U/L (7.0-40); AST/SGOT 13 U/L (<34); BILIRUBIN,DIRECT < 0.1 MG/DL (<0.4); BILIRUBIN,TOTAL 0.2 MG/DL (0.3-1.2); BLOOD UREA NITROGEN 12 MG/DL (9-23); CARBON DIOXIDE LEVEL 24 MMOL/L (20-31); CHLORIDE LEVEL 106 MMOL/L (98-107); GLOMERULAR FILTRATION RATE > 60.0 (>60); GLUCOSE, FASTING 135 MG/DL (60-100); SALICYLATE LEVEL < 3.0 MG/DL (<30); SODIUM LEVEL 141 MMOL/L (136-145); TOTAL PROTEIN 7.3 G/DL (5.7-8.2)
[2024-06-09 02:16] LABS: THYROID STIMULATING HORMONE 7.348 uIU/ML (0.55-4.78)
[2024-06-09 02:26] LABS: HCG, SERUM QUALITATIVE NEGATIVE (NEGATIVE)
[2024-06-09 07:46] VITALS: BP 124/77; TEMP 97.8; O2SAT 98
[2024-06-09] MEDS: DULoxetine 30MG CAPSULE (CYMBALTA) PO SCH (09:14)
[2024-06-09] MEDS ORDERED: DULO30CA9 PO (11:41)
[2024-06-09] MEDS ORDERED: HOME MED LIST COMPLETE! XX SCH (11:45)
== END 2024-06-09 14:40 | disposition home or self-care (01) ==
LOC: M ED 00:57
DX: F32.A Depression, unspecified (principal); Z88.8 Allergy status to other drugs, medicaments and biological substances; Z79.899 Other long term (current) drug therapy